=== PATIENT | female | born 1955 | race Caucasian/White ===

== ENCOUNTER 2020-11-01 16:11 | Inpatient (IN) | payer OTHER ==
[~2020-11-01] VITALS: Ht 167.6 cm; Wt 87.6 kg
[~2020-11-01 16:11] MED LIST: ASPIRIN EC81 MG PO; ATIVAN1 MG PO; CALCIUM 1,0001 EACH PO; LIPITOR20 MG PO; NIACIN ER500 MG PO; TYMLOS1.56 ML SC; VENLAFAXINE H37.5 M2 PO; VICTOZA 2-0.6 MG/0.1 SC
[2020-11-01 17:00] LABS: EOSINOPHIL 1.5 % (0-7); HCT 48.8 % (37.0-47.0); HGB 15.7 g/dl (12.5-16.0); LYMPHOCYTE 14.2 % (15-48); MCHC 32.2 g/dL (32.0-36.0); MCV 90.2 fL (78.0-100.0); MONOCYTE 3.5 % (0-12); MPV 9.7 fL (6.0-9.5); NEUTROPHIL 78.9 % (41-80); NRBC 0; PLT 278 K/uL (150-400); RBC 5.41 M/uL (4.20-5.40); RDW 13.6 % (11.5-14.0); WBC 10.3 K/uL (4.0-10.5)
[2020-11-01 17:23] LABS: ALBUMIN 3.4 g/dL (3.4-5.0); BILIRUBIN - TOTAL 0.4 mg/dL (0.2-1.0); BUN/CREAT RATIO (CALC) 23.4 RATIO; CREATININE 0.77 mg/dL (0.51-0.95); GLOBULIN (CALCULATION) 3.8 g/dL; POTASSIUM 4.4 mmol/L (3.5-5.1); TOTAL PROTEIN 7.2 g/dL (6.4-8.2)
[2020-11-01 17:32] LABS: PRO-BNP 21 pg/mL (<125)
[2020-11-01] MEDS ORDERED: EFFEXOR-XR 75 M75 MG PO (20:19)
[2020-11-02 06:23] LABS: BASOPHIL 0.3 % (0-2); EOSINOPHIL 0 % (0-7); HCT 44.3 % (37.0-47.0); HGB 14.3 g/dl (12.5-16.0); LYMPHOCYTE 11.4 % (15-48); MCH 29.1 pg (25.0-31.0); MCHC 32.3 g/dL (32.0-36.0); MONOCYTE 2.4 % (0-12); MPV 10.1 fL (6.0-9.5); NEUTROPHIL 85.1 % (41-80); NRBC 0; PLT 272 K/uL (150-400); RBC 4.92 M/uL (4.20-5.40); RDW 13.3 % (11.5-14.0); WBC 14.7 K/uL (4.0-10.5)
[2020-11-02 06:42] LABS: ALBUMIN 2.9 g/dL (3.4-5.0); BILIRUBIN - TOTAL 0.3 mg/dL (0.2-1.0); BUN/CREAT RATIO (CALC) 18.1 RATIO; CREATININE 0.72 mg/dL (0.51-0.95); GLOBULIN (CALCULATION) 3.9 g/dL; TOTAL PROTEIN 6.8 g/dL (6.4-8.2)
[2020-11-03 05:43] LABS: BASOPHIL 0.2 % (0-2); EOSINOPHIL 0 % (0-7); HCT 43.5 % (37.0-47.0); HGB 13.9 g/dl (12.5-16.0); LYMPHOCYTE 6.4 % (15-48); MCH 29.2 pg (25.0-31.0); MCV 91.4 fL (78.0-100.0); MONOCYTE 3.3 % (0-12); MPV 10.1 fL (6.0-9.5); NRBC 0; PLT 277 K/uL (150-400); RBC 4.76 M/uL (4.20-5.40); RDW 13.6 % (11.5-14.0); WBC 22.4 K/uL (4.0-10.5)
[2020-11-03 06:33] LABS: BUN/CREAT RATIO (CALC) 23.7 RATIO; CREATININE 0.76 mg/dL (0.51-0.95); MAGNESIUM 2.2 mg/dL (1.8-2.4); POTASSIUM 5.4 mmol/L (3.5-5.1)
[2020-11-04] MEDS ORDERED: PROVENTIL HFA6.7 GM INH (13:30)
[2020-11-04] MEDS ORDERED: LEVAQUIN750 MG PO (13:30)
[2020-11-04] MEDS ORDERED: MEDROL 4MG DOSEP4 MG PO (13:30)
[2020-11-04] MEDS ORDERED: DULERA 100 MCG8.8 GM INH (13:30)
[2020-11-04] MEDS ORDERED: ATROVENT HFA12.9 GM INH (13:30)
--- NOTE | 2020-11-04 15:55 | NUR ---
11/04/20 Patient lives alone. She was independent in the home and community prior to admission. 02 was not needed at discharge.
== END 2020-11-04 13:56 | disposition home or self-care (01) | DRG 177 ==
LOC: FER 16:11 → FMS 18:14
PROVIDERS: Emergency Medicine; Nurse Practitioner; ADMIT Internal Medicine
DX: J69.8 Pneumonitis due to inhalation of other solids and liquids (principal); J96.01 Acute respiratory failure with hypoxia; J98.11 Atelectasis; J20.9 Acute bronchitis, unspecified; N63.20 Unspecified lump in the left breast, unspecified quadrant; Z87.891 Personal history of nicotine dependence; M81.0 Age-related osteoporosis without current pathological fracture; Z82.49 Family history of ischemic heart disease and other diseases of the circulatory system; Z83.511 Family history of glaucoma; Z82.5 Family history of asthma and other chronic lower respiratory diseases; R73.03 Prediabetes; Z20.822 Contact with and (suspected) exposure to COVID-19
CPT/HCPCS: 36415; 36600; 71045; 71275; 80048; 80053; 82607; 82803; 83605; 83735; 83880; 84145; 84484; 85025; 87040; 93005; 94010; 94640; 94664; 94760; J1650; J1956; J2930; Q9967; U0002